=== PATIENT | female | born 1990 | race African-American/Black ===

== ENCOUNTER 2019-03-03 12:25 | Emergency (ER) | payer MEDICAID, OTHER ==
[~2019-03-03] VITALS: Ht 165.1 cm; Wt 81.6 kg
[2019-03-03 13:25] VITALS: BP 134/71
[2019-03-03 14:01] LABS: Urine Bacteria NONE SEEN /hpf (None Seen); Urine Blood Negative /uL (Negative); Urine Hyaline Cast FEW /lpf (0 - 2); Urine Mucus FEW (None Seen); Urine Specific Gravity 1.014 (1.001-1.035); Urine WBC 11 /hpf (0 - 5)
== END 2019-03-03 14:28 | disposition home or self-care (01) ==
LOC: ER 12:31
DX: O99.89 Other specified diseases and conditions complicating pregnancy, childbirth and the puerperium (principal); O23.42 Unspecified infection of urinary tract in pregnancy, second trimester; M54.42 Lumbago with sciatica, left side; M54.41 Lumbago with sciatica, right side; Z3A.23 23 weeks gestation of pregnancy
CPT/HCPCS: 81001

== ENCOUNTER 2019-06-14 09:18 | Observation (INO) | payer MEDICAID ==
[2019-06-14] MEDS ORDERED: FERR-7 PO (10:10)
== END 2019-06-14 10:55 | disposition home or self-care (01) | DRG 566 ==
LOC: LDRP 09:18
PROVIDERS: ADMIT Obstetrics & Gynecology; ATTEND Obstetrics & Gynecology
DX: O36.5930 Maternal care for other known or suspected poor fetal growth, third trimester, not applicable or unspecified (principal); O34.219 Maternal care for unspecified type scar from previous cesarean delivery; Z3A.38 38 weeks gestation of pregnancy
CPT/HCPCS: 59025; 76818; 81002; G0378

== ENCOUNTER 2019-06-17 13:16 | Observation (INO) | payer MEDICAID ==
[~2019-06-17 13:16] MED LIST: FERR-7 PO
== END 2019-06-17 14:30 | disposition home or self-care (01) | DRG 566 ==
LOC: LDRP 13:16
PROVIDERS: ADMIT Specialist; ATTEND Specialist
DX: O36.5930 Maternal care for other known or suspected poor fetal growth, third trimester, not applicable or unspecified (principal); O34.219 Maternal care for unspecified type scar from previous cesarean delivery; Z3A.38 38 weeks gestation of pregnancy
CPT/HCPCS: 59025; 76818; 81002; G0378

== ENCOUNTER 2019-06-21 06:22 | Inpatient (IN) | payer MEDICAID ==
[~2019-06-21] VITALS: Ht 165.1 cm; Wt 82.6 kg
[2019-06-21] VITALS (8 sets, daily range): BP systolic 105–121; BP diastolic 44–75
[2019-06-21] MEDS ORDERED: LACTATED RINGER'S 1,000 ML IV SCH ×2 (06:53→13:34)
[2019-06-21 07:47] LABS: Basophils # (auto) 0.1 uL; Basophils % (auto) 1.2 % (0.0-2.0); Eosinophils # (auto) 0 uL; Eosinophils % (auto) 0.6 % (0.0-7.0); Hemoglobin 11.2 g/dL (12.2-16.2); Lymphocytes # (auto) 1.7 uL; Lymphocytes % (auto) 29.9 % (10.0-50.0); Mean Corpuscular Hemoglobin 26.8 pg (28.0-32.0); Mean Corpuscular Hgb Conc. 32.1 g/dL (32.0-36.0); Mean Corpuscular Volume 83.6 fL (80.0-100.0); Monocytes # (auto) 0.3 uL; Monocytes % (auto) 4.3 % (0.0-12.0); Neutrophils # (auto) 3.7 uL; Nucleated Red Blood Cells % 0.1 %; Platelet Count (auto) 254 10^3/uL (140-450); Red Blood Cells 4.19 10^6/uL (4.0-5.20); Red Cell Distribution Width 17.6 % (11.8-14.3); White Blood Cell 5.8 10^3/uL (4.4-10.8)
[2019-06-21 07:53] LABS: Urine Bacteria MOD /hpf (None Seen); Urine Blood Negative /uL (Negative); Urine Mucus FEW (None Seen); Urine Specific Gravity 1.018 (1.001-1.035); Urine WBC 17 /hpf (0 - 5)
[2019-06-21 08:01] LABS: INR < 0.93 (0.9-1.15); Partial Thromboplastin Time 25.7 sec (23.64-32.05)
[2019-06-21 08:04] LABS: Albumin 2.9 g/dL (3.4-5.0); Calcium 8.7 mg/dL (8.5-10.1); Potassium 3.8 mmol/L (3.5-5.1)
[2019-06-21 08:08] LABS: BUN/Creatinine Ratio 8.3; Bilirubin, Total 0.2 mg/dL (0.2-1.0); Total Protein 7.7 g/dL (6.4-8.2)
[2019-06-21] MEDS ORDERED: PHENYLEPHRINE HCL 10 MG/ML VL ONE (10:17)
[2019-06-21] MEDS ORDERED: ceFAZolin 1GM VL ONE (10:17)
[2019-06-21] MEDS ORDERED: ePHEDrine SULFATE 50 MG/ML AMP ONE (10:17)
[2019-06-21] MEDS ORDERED: OXYTOCIN 10 UNIT/ML 10ML VIAL ONE (10:19)
[2019-06-21] MEDS ORDERED: TETRACAINE 1% INJ 2 ML VIAL IJ ONE (11:27)
[2019-06-21] MEDS ORDERED: MORPHINE SULF(PF) 0.5MG/ML 10ML VIAL ONE (11:42)
[2019-06-21] MEDS ORDERED: DEXTROSE 50% SYRINGE 50 ML IV ONE (11:52)
[2019-06-21] MEDS ORDERED: TERBUTALINE SULFATE 1 MG/ML 1ML VIAL SC ONE (12:07)
[2019-06-21] MEDS ORDERED: METOCLOPRAMIDE HCL 5MG/ml INJ 2ml VIAL ONE (12:37)
[2019-06-21] MEDS ORDERED: MIDAZOLAM HCL 1MG/1ML-2 ML VIAL ONE (12:48)
[2019-06-21] MEDS ORDERED: HYDROmorphone HCL 2 MG/ML VL IV PRN (13:45)
[2019-06-21] MEDS ORDERED: ceFAZolin 1GM/50ML 50 ML IV SCH (13:45)
[2019-06-21] MEDS ORDERED: ONDANSETRON HCL 4 MG/2 ML VIAL IV PRN (13:45)
--- NOTE | 2019-06-21 14:30 | NUR ---
Post Op for LDRP: Received patient from PACU via bed to room . Patient A/A/Ox4, abdominal binder and bilateral SCD's are in place, IV fluids placed on pump and infusing per order at 125 ml/hr, incisional site dressing clean/dry/intact and Kwan Catheter to gravity draining clear yellow urine. Incentive Spirometer at bedside and instruction on proper use with return demonstration done by patient. BP cuff placed on pt and set to take q30 minutes, pt's vs stable at this time, no s/s of distress noted. Pt denies pain at this time.
--- NOTE | 2019-06-21 17:30 | NUR ---
FUNDAL MASSAGE COMPLETE, FUNDUS FIRM AT U, LOCHIA NOTED LIGHT AT THIS TIME. WALDO PADS CHANGED. PAREDES CATH DRAINED, 350 ML'S OF LIGHT YELLOW URINE.
[2019-06-21] MEDS: KETOROLAC TROMETH 30 MG/ML 1ML VIAL IV SCH (17:56)
--- NOTE | 2019-06-21 18:20 | NUR ---
REPORT ON STABLE PT TO ANNABEL DAS.
[2019-06-21 20:41] LABS: Alcohol, Urine < 3.0 mg/dL (0-5); Amphetamine Screen, Urine NEGATIVE (NEGATIVE); Barbiturate Scree,Urine NEGATIVE (NEGATIVE); Benzodiazephine Screen, Urine NEGATIVE (NEGATIVE); Cannabinoid Screen, Urine NEGATIVE (NEGATIVE); Cocaine Screen, Urine NEGATIVE (NEGATIVE); Opiate Scree,Urine NEGATIVE (NEGATIVE); Phencyclidine Screen, Urine NEGATIVE (NEGATIVE)
[2019-06-21] MEDS: ceFAZolin 1GM/50ML 50 ML IV SCH (21:48)
[2019-06-22] MEDS: KETOROLAC TROMETH 30 MG/ML 1ML VIAL IV SCH ×2 (00:24→05:30)
--- NOTE | 2019-06-22 00:45 | NUR ---
Ambulation: Patient OOB with standby assistance by RN. Patient ambulated to chair at bedside with steady gait. Kwan catheter still in place draining clear yellow urine. Pericare teaching provided with returned demonstration by patient. Clean gown provided and bed linen changed. Patient ambulated back to bed with steady gait and no distress noted.
[2019-06-22] MEDS ORDERED: PREN-96 PO (01:58)
[2019-06-22 03:00] VITALS: BP 110/64
[2019-06-22] MEDS: ceFAZolin 1GM/50ML 50 ML IV SCH ×2 (05:30→15:02)
[2019-06-22 06:49] LABS: Basophils # (auto) 0 uL; Basophils % (auto) 0.5 % (0.0-2.0); Eosinophils # (auto) 0 uL; Eosinophils % (auto) 0.5 % (0.0-7.0); Hematocrit 27.9 % (36.0-46.0); Lymphocytes # (auto) 2.2 uL; Lymphocytes % (auto) 28.4 % (10.0-50.0); Mean Corpuscular Hemoglobin 27.1 pg (28.0-32.0); Mean Corpuscular Hgb Conc. 32.2 g/dL (32.0-36.0); Mean Corpuscular Volume 84.1 fL (80.0-100.0); Monocytes # (auto) 0.5 uL; Monocytes % (auto) 7.1 % (0.0-12.0); Neutrophils # (auto) 4.9 uL; Neutrophils % (auto) 63.5 % (37.0-80.0); Nucleated Red Blood Cells % 0.1 %; Platelet Count (auto) 199 10^3/uL (140-450); Red Blood Cells 3.32 10^6/uL (4.0-5.20); Red Cell Distribution Width 17.7 % (11.8-14.3); White Blood Cell 7.6 10^3/uL (4.4-10.8)
[2019-06-22 07:00] VITALS: BP 113/59
[2019-06-22] MEDS ORDERED: HYDROcodone-ACET 5/325MG TAB PO PRN ×2 (10:45)
[2019-06-22] MEDS ORDERED: BISACODYL 10 MG RECT SUPP PR PRN (10:45)
[2019-06-22 11:00] VITALS: BP 129/77
[2019-06-22 11:07] LABS: RPR Non Reactive (Non Reactive)
[2019-06-22 15:00] VITALS: BP 128/77
[2019-06-22] MEDS: IBUPROFEN 800 MG TAB PO PRN ×2 (15:02→22:26)
[2019-06-22] MEDS: SIMETHICONE 80 MG CHEWABLE TABLET PO SCH ×3 (15:03→22:21)
[2019-06-22] MEDS ORDERED: ACETAMINOPHEN 325 MG TAB PO PRN (17:30)
[2019-06-22 19:00] VITALS: BP 122/85
[2019-06-22] MEDS ORDERED: ACETAMINOPHEN/CODEINE#3 (300/30mg) TAB ONE (19:14)
[2019-06-22] MEDS: DOCUSATE SOD 100 MG CAP PO SCH (22:21)
[2019-06-22 22:58] VITALS: BP 122/71
[2019-06-23] MEDS: ACETAMINOPHEN/CODEINE#3 (300/30mg) TAB PO PRN ×4 (00:29→20:04)
[2019-06-23 03:00] VITALS: BP 115/68
[2019-06-23] MEDS: SIMETHICONE 80 MG CHEWABLE TABLET PO SCH ×4 (05:31→22:10)
[2019-06-23 07:00] VITALS: BP 110/69
[2019-06-23] MEDS: DOCUSATE CALCIUM 240 MG CAP PO SCH (10:00)
[2019-06-23] MEDS: DOCUSATE SOD 100 MG CAP PO SCH ×2 (10:23→22:10)
[2019-06-23 11:00] VITALS: BP 128/74
[2019-06-23] MEDS: IBUPROFEN 800 MG TAB PO PRN ×2 (14:16→22:10)
[2019-06-23 14:30] VITALS: BP 128/79
--- NOTE | 2019-06-23 14:30 | NUR ---
report given to Niles Willis RN. transferred care
--- NOTE | 2019-06-23 14:30 | NUR ---
REPORT RECEIVED FROM Hoa BOCANEGRA RN.
--- NOTE | 2019-06-23 15:35 | NUR ---
CALLED [employer] AND LEFT A MESSAGE TO CALL BACK WITH BETHANY.
--- NOTE | 2019-06-23 18:10 | NUR ---
Social Service Maricarmen called and states she will call [facility] . Report given to Domenic Mead RN to follow up with Maricarmen.
--- NOTE | 2019-06-23 18:30 | NUR ---
Called and spoke with Maricarmen and reported back to her that we cannot email facesheet to her like she requested but I can fax over [employer]Blue [employer]. Maricarmen states she is driving and going down the hill and that she will call back later to get information off the facesheet. Maricarmen gives contact numbers as follows:
[2019-06-23 19:00] VITALS: BP 104/77
[2019-06-23 23:00] VITALS: BP 119/68
[2019-06-24] MEDS: ACETAMINOPHEN/CODEINE#3 (300/30mg) TAB PO PRN (01:43)
[2019-06-24 03:20] VITALS: BP 128/71
[2019-06-24] MEDS: IBUPROFEN 800 MG TAB PO PRN (05:51)
[2019-06-24] MEDS: SIMETHICONE 80 MG CHEWABLE TABLET PO SCH (05:51)
[2019-06-24 06:45] VITALS: BP 115/68
--- NOTE | 2019-06-24 08:08 | NUR ---
Called and spoke with Maricarmen Hernadez states she spoke with [employer]PS and there is no active case at this time, they will follow up once patient is home, asked for this RN to confirm address and fax her face sheet. Patient is cleared for discharge. Maricarmen gives Fax number :[phone]
--- NOTE | 2019-06-24 09:54 | NUR ---
Pt is a 28 yo alert and oriented female that recently delivered a baby boy via . Per boyfriend pt has other children that are not in her custody. SS consult to discuss with pt. Pt states she has a 2 yo in the home that she resides in with the present FOB and other relatives. Pt states she had open case with CPS 5-6 years ago that is currently closed. States that her other children were adopted out by CPS and she does not have visitation. Ages of the children are 8 yo, 6 yo twins, 5 yo, and a 4 yo. Contacted Kiki at [employer] and discussed above issues regarding previous case and discharging home with . CPS referral was opened to assess situation due to previously failed unification. Pt is clear to discharge and CPS will followup with visit post discharge. [facility] Case number is [id number], case name [email or web address].
--- NOTE | 2019-06-24 10:35 | NUR ---
Patient requesting Motrin instead of [place] prescription for D/C will place call to doctor.
--- NOTE | 2019-06-24 10:40 | NUR ---
Call placed to Dr. Vivas for Motrin prescription, instead of Dahlgren. Orders received to call in prescription. Motrin 800 mg PO TID PRN #[id number]
--- NOTE | 2019-06-24 10:50 | NUR ---
Discharge: Discharge instructions given as ordered. Pt encouraged to follow up with [facility] [employer] as instructed. All questions and concerns addressed. Patient verbalized understanding. Medication reconciliation completed and copy given to patient. All required/requested vaccines given and copies of vaccinations given to patient. Patient encouraged to prepare to depart unit.
[2019-06-24] MEDS: DOCUSATE CALCIUM 240 MG CAP PO SCH (11:01)
[2019-06-24] MEDS: DOCUSATE SOD 100 MG CAP PO SCH (11:02)
--- NOTE | 2019-06-24 11:37 | NUR ---
pharmacy prescription Call placed to [facility] in [place] [address]. [phone] 800 mg Motrin PO TID PRN #[id number]
--- NOTE | 2019-06-24 11:42 | NUR ---
Discharge: Patient taken to vehicle via wheelchair with all personal belongings, accompanied by staff and family member. No distress noted at time of departure, no adverse changes in status since initial assessment.
== END 2019-06-24 11:42 | disposition home or self-care (01) | DRG 540 ==
LOC: LDRP 06:22
PROVIDERS: ADMIT Obstetrics & Gynecology; ATTEND Obstetrics & Gynecology
PROC: 10D00Z1 Extraction of Products of Conception, Low, Open Approach (ICD-10-PCS; principal; 2019-06-21 11:35)
DX: O99.284 Endocrine, nutritional and metabolic diseases complicating childbirth (principal); E66.9 Obesity, unspecified; E16.2 Hypoglycemia, unspecified; O36.5930 Maternal care for other known or suspected poor fetal growth, third trimester, not applicable or unspecified; O34.211 Maternal care for low transverse scar from previous cesarean delivery; O77.0 Labor and delivery complicated by meconium in amniotic fluid; O99.214 Obesity complicating childbirth; Z37.0 Single live birth; Z3A.39 39 weeks gestation of pregnancy
CPT/HCPCS: 36415; 51702; 59025; 80053; 80307; 81001; 82962; 84112; 85025; 85610; 85730; 86592; 86850; 86900; 86901; 94762; 96365; 96366; 96374; G0378; J0690; J1885; J2250; J2590

== ENCOUNTER 2019-08-20 12:07 | Emergency (ER) | payer MEDICAID ==
[~2019-08-20] VITALS: Ht 165.1 cm; Wt 77.1 kg
[~2019-08-20 12:07] MED LIST changes: +PREN-96 PO
[2019-08-20 12:36] VITALS: BP 102/55
== END 2019-08-20 15:29 | disposition home or self-care (01) ==
LOC: ER 12:07
DX: N64.4 Mastodynia (principal)

== ENCOUNTER 2019-09-25 09:57 | Emergency (ER) | payer MEDICAID ==
[~2019-09-25] VITALS: Ht 165.1 cm; Wt 78.0 kg
[2019-09-25 10:21] VITALS: BP 122/67
[2019-09-25 10:53] LABS: Urine Bacteria NONE SEEN /hpf (None Seen); Urine Blood Negative /uL (Negative); Urine Specific Gravity 1.018 (1.001-1.035); Urine WBC 8 /hpf (0 - 5)
[2019-09-25] MEDS ORDERED: IBUPROFEN 600 MG TAB PO ONE (12:30)
== END 2019-09-25 13:43 | disposition home or self-care (01) ==
LOC: ER 09:57
DX: M94.0 Chondrocostal junction syndrome [Tietze] (principal); R51 Headache
CPT/HCPCS: 71046; 81001; 81025